=== PATIENT | male | born 1955 | race American Indian/Alaskan Native ===

== ENCOUNTER 2016-10-21 14:11 | Inpatient (IN) | payer MEDICARE ==
[2016-10-21] MEDS ORDERED: NACL 0.9% 1000 ML 1,000 ML ONE (15:19)
[2016-10-21] MEDS ORDERED: NACL 0.9% 1000 ML IV ONE ×2 (15:31→15:41)
[2016-10-21 15:59] LABS: Basophils % (Auto) 0.3 % (0.0-1.8); Eosinophils % (Auto) 0.1 % (0.0-4.3); Hematocrit 54.4 % (35.5-45.6); Hemoglobin 17.5 gm/dl (11.8-15.2); Mean Corpuscular HGB Conc 32 % (32-34); Mean Corpuscular Hemoglobin 28 pg (28-32); Mean Corpuscular Volume 88 fl (84-94); Platelet Count 207 K/mm3 (140-440); Red Blood Count 6.21 M/mm3 (3.65-5.03); Red Cell Distribution Width 13.7 % (13.2-15.2); White Blood Count 10.9 K/mm3 (4.5-11.0)
[2016-10-21 16:12] LABS: Anion Gap 26 mmol/L; B-Hydroxybutyrate 25.1 mg/dL (0.2-2.8); BUN/Creatinine Ratio 27.69; Blood Urea Nitrogen 36 mg/dL (9-20); Calcium 10.2 mg/dL (8.4-10.2); Carbon Dioxide 23 mmol/L (22-30); Chloride 117.4 mmol/L (98-107); Potassium 4.1 mmol/L (3.6-5.0)
[2016-10-21 16:25] LABS: Glucose 542 mg/dL (75-100)
[2016-10-21 16:26] LABS: Sodium 162 mmol/L (137-145)
[2016-10-21] MEDS: NACL 0.45% 1000 ML 1,000 ML IV SCH ×2 (16:58→23:48)
--- NOTE | 2016-10-21 17:02 | Emergency Department Report ---
HPI - General Chief Complaint: Hyperglycemia Time Seen by Provider: 10/21/16 15:40 - HPI HPI: Chief complaint: Altered mental status HPI: Patient is a 61-year-old male with history of CVA with right hemiparesis and aphasia, G-tube, hypertension and type 2 diabetes who presents today with altered mental status. Patient's daughter states she went to see him and he is just not acting as he normally does. Patient is a phasic but can interact quite well usual. Patient himself is unable to contribute to the history. Patient is in a detention ever since he had his stroke as he is unable to walk. Patient does eat pured foods sometimes has a feeding tube for times when he is unable to eat enough. Mode of arrival: EMS Source: family member and nursing notes Began: Family members noticed it today Duration: Able to assess Context: See above Quality: Unable to assess Severity: Unable to assess Improved with: Nothing Worsened with: Nothing Associated signs and symptoms: Unable to assess ED Past Medical Hx - Past Medical History Previous Medical History?: Yes Hx Hypertension: Yes Hx CVA: Yes Hx Diabetes: Yes (patient is not currently on any medication for diabetes) Additional medical history: Stroke. Left side hemiplegia. .Has Peg tube for feeding. Aphasic. after stroke. - Social History Smoking Status: Former Smoker ED Review of Systems ROS: Stated complaint: HYPERGLYCEMIA Other details as noted in HPI Comment: Unobtainable due to pts medical conditions (patient altered with aphasia) Physical Exam - Physical Exam Vital Signs: Vital Signs 10/21/16 10/21/16 10/21/16 14:44 14:54 15:00 Temperature 98.5 F Pulse Rate 134 H 137 H Respiratory 35 H 37 H Rate Blood Pressure 125/93 129/93 Blood Pressure [Left] O2 Sat by Pulse 95 94 93 Oximetry 10/21/16 10/21/16 10/21/16 15:08 15:09 15:29 Temperature 98.8 F Pulse Rate 137 H 129 H Respiratory 38 H 35 H 35 H Rate Blood Pressure 129/93 Blood Pressure 129/93 [Left] O2 Sat by Pulse 93 98 94 Oximetry Physical Exam: GENERAL: The patient is well-developed well-nourished. HEENT: Normocephalic. Atraumatic. Extraocular motions are intact. Patient has moist mucous membranes. NECK: Supple. No meningitic signs are noted. There is no adenopathy noted. CHEST/LUNGS: Clear to auscultation. There is no respiratory distress noted. HEART/CARDIOVASCULAR: Regular. There is no tachycardia. There is no gallop rub or murmur. ABDOMEN: Abdomen is soft, nontender. Patient has normal bowel sounds. There is no abdominal distention. SKIN: There is no rash. There is no edema. There is no diaphoresis. NEURO: The patient is awake, alert, and aphasic. Patient able to move all extremities. Patient unable to answer even yes/no questions. MUSCULOSKELETAL: There is no tenderness or deformity. There is no evidence of acute injury. ED Course Vital Signs 10/21/16 10/21/16 10/21/16 14:44 14:54 15:00 Temperature 98.5 F Pulse Rate 134 H 137 H Respiratory 35 H 37 H Rate Blood Pressure 125/93 129/93 Blood Pressure [Left] O2 Sat by Pulse 95 94 93 Oximetry 10/21/16 10/21/16 10/21/16 15:08 15:09 15:29 Temperature 98.8 F Pulse Rate 137 H 129 H Respiratory 38 H 35 H 35 H Rate Blood Pressure 129/93 Blood Pressure 129/93 [Left] O2 Sat by Pulse 93 98 94 Oximetry - Reevaluation(s) Reevaluation #1: 10/21/16 17:04 Patient's Accu-Chek was elevated and he was given 2 L of normal saline which was switched to half normal saline after his labs came back. Patient also given 5 units of regular insulin IV. ED Medical Decision Making - Lab Data Result diagrams: 10/21/16 15:33 10/21/16 15:33 Laboratory Tests 10/21/16 10/21/16 15:28 15:33 VBG pH 7.363 Ketones 25.1 H - EKG Data -: EKG Interpreted by Me EKG shows normal: sinus rhythm Rate: tachycardia (135) - EKG Data When compared to previous EKG there are: previous EKG unavailable Interpretation: other (sinus tachycardia, left axis deviation) Critical care attestation.: If time is entered above; I have spent that time in minutes in the direct care of this critically ill patient, excluding procedure time. ED Disposition Clinical Impression: Dehydration with hypernatremia, Hyperglycemia Disposition: OP ADMITTED IP TO THIS HOSP Is pt being admited?: Yes Does the pt Need Aspirin: Yes Condition: Serious Time of Disposition: 16:42 (admit to the hospitalist)
[2016-10-21] MEDS ORDERED: ASPIRIN FEEDTUBE ONE (17:15)
--- NOTE | 2016-10-21 17:45 | History and Physical Report ---
History of Present Illness Date of examination: 10/21/16 Date of admission: 10/21/16 Chief complaint: referred from [place] for hyperglycemia History of present illness: History is taken from patient's children at the bedside as he is aphasic after having a stroke 3 years ago Mr. Currie is a 61 yo M who sent to the ER from the nursing for elevated glucose and increased lethargy; as per his son he was told that he had borderline DM but was never started on anything. He was was seen in the ER and was found to have glucose of over 500; he was given NS bolus and started on 1/2 NS and given IV insulin; no cough or fever Past History Past Medical History: diabetes, hypertension, other (CVA with left hemiplegia and a phase) Past Surgical History: Other (peg placement) Social history: full code. denies: smoking (stopped 3 years ago), alcohol abuse , prescription drug abuse, IV drug use Family history: denies: hypertension Medications and Allergies Allergies Allergy/AdvReac Type Severity Reaction Status Date / Time No Known Allergies Allergy Unverified 10/21/16 15:02 Active Meds: Active Medications Sodium Chloride (Nacl 0.45% 1000 Ml) 1,000 mls @ 150 mls/hr IV DIRECT RHONDA Last Admin: 10/21/16 16:58 Dose: 150 mls/hr Review of Systems ROS unobtainable: due to mental status Exam - Constitutional Vitals: Temp Pulse Resp BP Pulse Ox 98.8 F 129 H 35 H 129/93 94 10/21/16 15:29 10/21/16 15:29 10/21/16 15:29 10/21/16 15:29 10/21/16 15:29 General appearance: Present: no acute distress, well-nourished - EENT Eyes: Present: PERRL, EOM intact. Absent: scleral icterus, conjunctival injection ENT: hearing intact, clear oral mucosa, no oropharyngeal erythema, no poor dentition - Neck Neck: Present: supple, normal ROM. Absent: enlarged thyroid, masses or JVD - Respiratory Respiratory effort: normal Respiratory: bilateral: diminished, negative: rales, rhonchi, wheezing - Cardiovascular Rhythm: regular Heart Sounds: Present: S1 & S2. Absent: gallop - Extremities Extremities: no ischemia, pulses intact, pulses symmetrical, No edema Peripheral Pulses: within normal limits - Abdominal General gastrointestinal: Present: soft, non-tender, non-distended, normal bowel sounds, other (peg tube in place) Male genitourinary: Present: deferred - Rectal Rectal Exam: deferred - Integumentary Integumentary: Present: clear - Psychiatric Psychiatric: other (unable to assess as he is a phasic) - Neurologic Neurologic: focal deficits (left hemiplegia- grade to pollen the left lower extremity and grade 3 at the elbow; grade 4 in the right upper extremity and grade 3 and the right lower extremity), other (aphasic) Results - Labs CBC & Chem 7: 10/21/16 15:33 10/21/16 15:33 Labs: Abnormal lab results 10/21/16 10/21/16 10/21/16 Range/Units 14:51 15:33 15:33 RBC 6.21 H (3.65-5.03) M/mm3 Hgb 17.5 H (11.8-15.2) gm/dl Hct 54.4 H (35.5-45.6) % [place] % (Auto) 10.3 H (0.0-7.3) % [place] # 1.1 H (0.0-0.8) K/mm3 Seg Neutrophils % 70.5 H (40.0-70.0) % Sodium 162 H* (137-145) mmol/L Chloride 117.4 H (98-107) mmol/L BUN 36 H (9-20) mg/dL Glucose 542 H* (75-100) mg/dL POC Glucose 491 H (70-105) Ketones 25.1 H (0.2-2.8) mg/dL - Imaging and Cardiology Chest x-ray: pending Assessment and Plan 1. Diabetes type 2 uncontrolled with hyperglycemia-we'll admit as an inpatient as more than 2 midnights are required for treatment. Start patient on IV fluids for hydration with half-normal saline. We'll also initiate insulin therapy with Lantus and sliding scale. With this will be adjusted as needed. Check hemoglobin A1c. Consult dietitian for tube feeding; add free water via PEG 2. Benign hypertension- now normal blood pressure, we'll continue to monitor blood pressure 3. Severe hypernatremia /hyperchloremia- secondary to dehydration-continue hydration with half-normal saline. Monitor sodium level. If sodium continues to increase then will change to a less hypotonic solution. Free water via PEG 4. Old CVA-aspirin, supportive care 5. DVT prophylaxis-Lovenox
[2016-10-21 20:14] LABS: Blood Urea Nitrogen 33 mg/dL (9-20); Calcium 9.7 mg/dL (8.4-10.2); Carbon Dioxide 21 mmol/L (22-30); Chloride 121.1 mmol/L (98-107); Glucose 395 mg/dL (75-100); Potassium 4.5 mmol/L (3.6-5.0)
[2016-10-21 20:20] LABS: Anion Gap 25 mmol/L; Sodium 163 mmol/L (137-145)
[2016-10-21] MEDS ORDERED: ZOFRAN IV PRN (20:25)
[2016-10-21] MEDS ORDERED: REGLAN IV PRN (20:25)
[2016-10-21] MEDS ORDERED: D50W (25GM) IV PRN (20:25)
[2016-10-21] MEDS ORDERED: SIMPLE SYRUP FEEDTUBE PRN ×2 (20:25)
[2016-10-21] MEDS ORDERED: PANCREAZE DR 10,500 UNIT FEEDTUBE PRN (20:25)
[2016-10-21] MEDS ORDERED: SODIUM BICARBONATE FEEDTUBE PRN (20:25)
[2016-10-21] MEDS ORDERED: LEVEMIR SUB-Q SCH (22:00)
[2016-10-21] MEDS: LEVEMIR SUB-Q SCH (22:47)
[2016-10-21] MEDS: NOVOLOG SUB-Q SCH (22:53)
--- NOTE | 2016-10-21 23:01 | Admit Criteria Form ---
Admission Criteria Documentation: HYPONATREMIA; HYPERNATREMIA; HYPOKALEMIA; HYPERKALEMIA; HYPOCALCEMIA; HYPERCALCEMIA Clinical Indications for Inpatient Care (Place 'X' for any and all applicable criteria): Ongoing inpatient care may be indicated for ANY ONE of the following [G](1)(2)(3 )(5): [ ]I. Hyponatremia with ANY ONE of the following: [ ]a) Sodium less than 130 mEq/L (mmol/L) (new) (6)(22) [ ]b) Sodium less than 135 mEq/L (mmol/L) with ANY ONE of the following: [ ]i) Severe medical etiology requiring inpatient management (eg, heart failure, hypovolemia) [ ]ii) Altered mental status [ ]iii) Seizures [ X]II. Hypernatremia with ANY ONE of the following: [ X]a) Sodium greater than 155 mEq/L (mmol/L) [ ]b) Sodium greater than 150 mEq/L (mmol/L) with ANY ONE of the following: [ ] i) Altered mental status [ ]ii) Seizures [ ]iii) Severe medical etiology (eg, hypovolemia, diabetes insipidus) [ ]iv) Severe weakness [ ]v) Severe medical etiology (eg, hemolysis, infection, drug overdose) [ ]III. Hypokalemia with ANY ONE of the following: [ ]a) Potassium less than 2.5 mEq/L (mmol/L) despite outpatient and emergency treatment [ ]b) Potassium less than 3.0 mEq/L (mmol/L) with ANY ONE of the following: [ ]i) Weakness [ ]ii) Cardiac abnormality (eg, arrhythmia, conduction disturbance) [ ]iii) Cardiac ischemia [ ]iv) Ileus [ ]v) Ongoing medical cause requiring inpatient management. ( e.g., acute renal wasting, SIADH) [ ]vi) Other severe symptoms [ ] IV. Hyperkalemia with ANY ONE of the following: [ ]a) Potassium greater than 6.5 mEq/L (mmol/L) [ ]b) Potassium greater than 5 mEq/L (mmol/L) with ANY ONE of the following: [ ]i) Severe ECG findings [H] [ ]ii) Acute worsening of renal failure (creatinine greater than 2.5 mg/dL (221 micromoles/L) or significant elevation for age and size) [ ] V. Hypocalcemia with ANY ONE of the following: [ ]a) Calcium less than 7 mg/dL (1.75 mmol/L) despite outpatient and emergency treatment(19) [ ]b) Calcium less than 8 mg/dL (2 mmol/L) with significant symptoms or findings; examples include: [ ]i) Cardiac abnormality (eg, arrhythmia or conduction disturbance) [ ]ii) Altered mental status [ ]iii) Seizures [ ]iv) Breathing difficulty [ ]v) Muscle spasms [ ]. Hypercalcemia with ANY ONE of the following: [ ]a) Calcium greater than 14 mg/dL (3.5 mmol/L) [ ]b) Calcium greater than 12 mg/dL (3 mmol/L) with ANY ONE of the following: [ ]i) Significant dehydration or hypovolemia as indicated by ANY ONE of the following(2): [ ]1. Clinically significant dehydration as indicated by ANY ONE of the following: [ ]A. Acute loss of weight from baseline (5% of body weight in adults, 9% in pediatric patients) [ ]B. Hemodynamic instability [ ]C. Acute renal failure [ ]D. Serum sodium greater than 150 mEq/L (mmol/L) [ ]2) Dehydration that is persistent indicated by ALL of the following: [ ]A. Oral rehydration therapy not tolerated or insufficient to adequately correct dehydration [ ]B. Appropriate intravenous treatment (eg, fluids ) does not readily correct dehydration ie, after 12 to 24 hours of treatment) [ ]ii) Significant symptoms or findings; examples include: [ ]1) Altered mental status [ ]2) Cardiac abnormality (eg, arrhythmia, conduction disturbance) [ ]3) Cardiac abnormality (eg, arrhythmia, conduction disturbance) The original [facility] [employer] content created by [employer] has been revised. The portions of the content which have been revised are identified through the use of italic text or in bold, and [facility] has neither reviewed nor approved the modified material. All other unmodified content is copyright [facility] [employer] [facility] [employer] Please see references footnoted in the original [facility] [employer] edition 2016 Admission Criteria Met: Yes
[2016-10-21] MEDS: TYLENOL PO PRN (23:47)
[2016-10-22] MEDS: NACL 0.45% 1000 ML 1,000 ML IV SCH (08:00)
[2016-10-22] MEDS: NOVOLOG SUB-Q SCH ×3 (08:01→17:49)
[2016-10-22 09:11] LABS: Anion Gap 18 mmol/L; BUN/Creatinine Ratio 28.88; Blood Urea Nitrogen 26 mg/dL (9-20); Calcium 9.2 mg/dL (8.4-10.2); Carbon Dioxide 26 mmol/L (22-30); Glucose 236 mg/dL (75-100); Potassium 3.5 mmol/L (3.6-5.0)
[2016-10-22 09:14] LABS: Sodium 161 mmol/L (137-145)
--- NOTE | 2016-10-22 09:39 | XRay Report ---
Single view chest: History: Shortness of breath. Findings: Normal cardiomediastinal silhouette. Trachea is midline. No consolidation, pneumothorax or pleural effusion. Impression: No acute cardiopulmonary findings.
[2016-10-22] MEDS ORDERED: ASPIRIN FEEDTUBE SCH (10:00)
[2016-10-22] MEDS: LOVENOX SUB-Q SCH (10:13)
[2016-10-22] MEDS: BABY ASPIRIN FEEDTUBE SCH (10:13)
--- NOTE | 2016-10-22 12:11 | Progress Note ---
Assessment and Plan Assessment and plan: Patient is a 61-year-old man from the assisted with a history of type 2 diabetes mellitus, hypertension and CVA with left-sided hemiparesis, aphasia and PEG tube placement who presents with hyperglycemia. 1. Acute metabolic encephalopathy 2. Severe hypernatremia: Consult nephrology and increase free water flushes via PEG tube 3. Hyperkalemia: Replace 4. Type 2 diabetes mellitus, chronic and worsening: Adjust tube feeding History Interval history: Patient seen and examined. Follow up on hyperglycemia. Patient is anxious and pulling at his PEG tube and not following commands. We'll need consider restraints. Overnight uneventful. No cp, sob, n/v or severe headaches. Imaging , old records, testing, labs, nursing notes reviewed. Hospitalist Physical - Physical exam Narrative exam: GEN: Chronic debilitated thin frail man NAD, AWAKE, ALERT, nonverbal CVS: Regular tachycardic, NORMAL S1S2 LUNGS/CHEST: CTA B, NORMAL CHEST EXPANSION B, GOOD AIR ENTRY B ABD: SOFT, PEG TUBE PRESENT but displaced, GBS, NO REBOUND OR GUARDING EXT/SKIN: NO SIGNIFICANT EDEMA OR RASH NEURO: CN 2-12 GROSSLY INTACT, NO NEW FOCAL DEFICITS, with left-sided hemiparesis and aphasia PSY: CALM - Constitutional Vitals: Temp Pulse Resp BP Pulse Ox 99 F 112 H 20 148/99 95 10/22/16 08:00 10/22/16 08:00 10/22/16 08:00 10/22/16 08:00 10/22/16 08:00 General appearance: Present: no acute distress Results - Labs CBC & Chem 7: 10/21/16 15:33 10/22/16 08:10 Labs: Laboratory Last Values WBC 10.9 K/mm3 (4.5-11.0) 10/21/16 15:33 RBC 6.21 M/mm3 (3.65-5.03) H 10/21/16 15:33 Hgb 17.5 gm/dl (11.8-15.2) H 10/21/16 15:33 Hct 54.4 % (35.5-45.6) H 10/21/16 15:33 MCV 88 fl (84-94) 10/21/16 15:33 MCH 28 pg (28-32) 10/21/16 15:33 MCHC 32 % (32-34) 10/21/16 15:33 RDW 13.7 % (13.2-15.2) 10/21/16 15:33 Plt Count 207 K/mm3 (140-440) 10/21/16 15:33 Lymph % (Auto) 18.8 % (13.4-35.0) 10/21/16 15:33 [place] % (Auto) 10.3 % (0.0-7.3) H 10/21/16 15:33 Eos % (Auto) 0.1 % (0.0-4.3) 10/21/16 15:33 Baso % (Auto) 0.3 % (0.0-1.8) 10/21/16 15:33 Lymph # 2.0 K/mm3 (1.2-5.4) 10/21/16 15:33 [place] # 1.1 K/mm3 (0.0-0.8) H 10/21/16 15: Eos # 0.0 K/mm3 (0.0-0.4) 10/21/16 15:33 Baso # 0.0 K/mm3 (0.0-0.1) 10/21/16 15:33 Seg Neutrophils % 70.5 % (40.0-70.0) H 10/21/16 15:33 Seg Neutrophils # 7.7 K/mm3 (1.8-7.7) 10/21/16 15:33 VBG pH 7.363 (7.320-7.420) 10/21/16 15:28 Sodium 161 mmol/L (137-145) H* 10/22/16 08:10 Potassium 3.5 mmol/L (3.6-5.0) L D 10/22/16 08:10 Chloride 121.0 mmol/L (98-107) H 10/22/16 08:10 Carbon Dioxide 26 mmol/L (22-30) 10/22/16 08:10 Anion Gap 18 mmol/L 10/22/16 08:10 BUN 26 mg/dL (9-20) H 10/22/16 08:10 Creatinine 0.9 mg/dL (0.8-1.5) 10/22/16 08:10 Estimated GFR > 60 ml/min 10/22/16 08:10 BUN/Creatinine Ratio 28.88 % 10/22/16 08:10 Glucose 236 mg/dL (75-100) H 10/22/16 08:10 POC Glucose 207 (70-105) H 10/22/16 06:34 Hemoglobin A1c 10.6 % (4-6) H 10/21/16 15:33 Osmolality 375 Mosm/kg 10/21/16 21:50 Calcium 9.2 mg/dL (8.4-10.2) 10/22/16 08:10 Ketones 25.1 mg/dL (0.2-2.8) H 10/21/16 15:33
--- NOTE | 2016-10-22 17:11 | Consultation ---
History of Present Illness - Reason for Consult Consult date: 10/22/16 - History of Present Illness Patient is a 61-y/o residential resident with a history of type 2 diabetes mellitus, hypertension, CVA with left-sided hemiparesis, aphasia and PEG tube in place who presented with uncontrolled blood sugar and AMS. Poor historian. Past History Past Medical History: diabetes, hypertension, other (CVA with left hemiplegia and a phase) Past Surgical History: Other (peg placement) Social history: full code. denies: smoking (stopped 3 years ago), alcohol abuse , prescription drug abuse, IV drug use Family history: denies: hypertension Medications and Allergies Allergies Allergy/AdvReac Type Severity Reaction Status Date / Time No Known Allergies Allergy Unverified 10/21/16 15:02 Home Medications Medication Instructions Recorded Confirmed Last Taken Type Effexor 37.5 mg FEEDTUBE BID 10/21/16 10/21/16 Unknown History Ferrous Sulfate 300 mg FEEDTUBE DAILY 10/21/16 10/21/16 Unknown History Lipitor 20 mg PO HS 10/21/16 10/21/16 Unknown History Plavix 75 mg FEEDTUBE DAILY 10/21/16 10/21/16 Unknown History RisperDAL 1 mg FEEDTUBE HS 10/21/16 10/21/16 Unknown History Valproic Acid 250 mg FEEDTUBE HS 10/21/16 10/21/16 Unknown History Active Meds: Active Medications Acetaminophen (Tylenol) 650 mg PO Q4H PRN PRN Reason: Pain MILD(1-3)/Fever >100.5/PUGA Last Admin: 10/21/16 23:47 Dose: 650 mg Lipase/Protease/Amylase (Pancreaze Dr 10,500 Unit) 1 each FEEDTUBE PRN PRN PRN Reason: For Clogged Feeding Tube Aspirin (Baby Aspirin) 81 mg FEEDTUBE QDAY [facility] Last Admin: 10/22/16 10:13 Dose: Not Given Dextrose (D50w (25gm)) 50 ml IV PRN PRN PRN Reason: Hypoglycemia Enoxaparin Sodium (Lovenox) 40 mg SUB-Q QDAY [facility] Last Admin: 10/22/16 10:13 Dose: 40 mg Insulin Aspart (Novolog) 0 units SUB-Q ACHS RHONDA PRN Reason: Protocol Last Admin: 10/22/16 13:11 Dose: Not Given Insulin Detemir (Levemir) 15 units SUB-Q QHS [facility] Last Admin: 10/21/16 22:47 Dose: 15 units Metoclopramide HCl (Reglan) 10 mg IV Q6H PRN PRN Reason: Nausea And Vomiting Ondansetron HCl (Zofran) 4 mg IV Q8H PRN PRN Reason: N/V unrelieved by Reglan Last Admin: 10/21/16 23:47 Dose: 4 mg Simple Syrup (Simple Syrup) 15 ml FEEDTUBE PRN PRN PRN Reason: Hypoglycemia Simple Syrup (Simple Syrup) 30 ml FEEDTUBE PRN PRN PRN Reason: Hypoglycemia Sodium Bicarbonate (Sodium Bicarbonate) 325 mg FEEDTUBE PRN PRN PRN Reason: For Clogged Feeding Tube Review of Systems ROS unobtainable: due to mental status Exam - Vital Signs Vital signs: Vital Signs Pulse Ox 95 10/21/16 14:44 Temp Pulse Resp BP Pulse Ox 99 F 112 H 20 148/99 95 10/22/16 08:00 10/22/16 08:00 10/22/16 08:00 10/22/16 08:00 10/22/16 08:00 - General Appearance General appearance: cachectic, frail EENT: mucous membranes dry Respiratory: Decreased Breath Sounds Heart: regular, S1S2 Gastrointestinal: Present: normoactive bowel sounds, other (peg tube) Neurologic: aphasia (alert and oriented to self), other Musculoskeletal: Present: other (with left-sided hemiparesis ) Psychiatric: other Results - Lab Results 10/21/16 15:33 10/22/16 08:10 Most recent lab results Calcium 9.2 mg/dL (8.4-10.2) 10/22/16 08:10 Assessment and Plan Impression: UMANG sec to dehydration Hypernatremia Erythrocytosis. Chronic Debilitation Uncontrolled Hyperglycemia Mild hypokalemia. Reccommendation: Will continue IV hydration wih hypotonic solution - D5W Obtain Urine studies. Support BP if reccurrent hypotension Avoid nephrotoxins agents. PEG tube use chi. Enterally feed Thanks for the consult.
[2016-10-22] MEDS: TYLENOL PO PRN (22:39)
[2016-10-22] MEDS: LEVEMIR SUB-Q SCH (22:41)
[2016-10-23] MEDS: NOVOLOG SUB-Q SCH ×6 (01:41→23:34)
[2016-10-23 08:23] LABS: BUN/Creatinine Ratio 28.75; Blood Urea Nitrogen 23 mg/dL (9-20); Calcium 9.6 mg/dL (8.4-10.2); Carbon Dioxide 27 mmol/L (22-30); Glucose 188 mg/dL (75-100)
[2016-10-23 08:24] LABS: Anion Gap 19 mmol/L; Chloride 121.5 mmol/L (98-107); Potassium 3.4 mmol/L (3.6-5.0)
[2016-10-23 08:25] LABS: Sodium 164 mmol/L (137-145)
--- NOTE | 2016-10-23 09:51 | Progress Note ---
Assessment and Plan Impression: UMANG sec to dehydration Hypernatremia - persistent. Erythrocytosis. Chronic Debilitation Uncontrolled Hyperglycemia Mild hypokalemia. Reccommendation: Will resume IV D5W BP is stable Avoid nephrotoxins agents. Subjective Date of service: 10/23/16 Interval history: Follow up for hypernatremia and UMANG. Objective - Vital Signs Vital signs: Vital Signs - 12hr 10/23/16 10/23/16 10/23/16 00:00 04:00 08:00 Temperature 97.4 F L 97.9 F 98.3 F Pulse Rate [ 120 H 110 H 119 H Left Radial] Respiratory 22 20 22 Rate Blood Pressure 127/78 119/70 133/91 [Left Radial Artery] O2 Sat by Pulse 94 95 98 Oximetry Intake & Output 10/21/16 10/22/16 10/23/16 10/24/16 06:59 06:59 06:59 06:59 Intake Total 10 0 Balance 10 0 Weight 76 kg - Lab 10/21/16 15:33 10/23/16 07:18 Most recent lab results Calcium 9.6 mg/dL (8.4-10.2) 10/23/16 07:18 Current Medications Acetaminophen (Tylenol) 650 mg PO Q4H PRN PRN Reason: Pain MILD(1-3)/Fever >100.5/PUGA Last Admin: 10/22/16 22:39 Dose: 650 mg Lipase/Protease/Amylase (Pancreaze Dr 10,500 Unit) 1 each FEEDTUBE PRN PRN PRN Reason: For Clogged Feeding Tube Aspirin (Baby Aspirin) 81 mg FEEDTUBE QDAY [facility] Last Admin: 10/22/16 10:13 Dose: Not Given Dextrose (D50w (25gm)) 50 ml IV PRN PRN PRN Reason: Hypoglycemia Enoxaparin Sodium (Lovenox) 40 mg SUB-Q QDAY [facility] Last Admin: 10/22/16 10:13 Dose: 40 mg Insulin Aspart (Novolog) 0 units SUB-Q ACHS [facility] PRN Reason: Protocol Last Admin: 10/23/16 01:41 Dose: 2 units Insulin Detemir (Levemir) 15 units SUB-Q QHS [facility] Last Admin: 10/22/16 22:41 Dose: 15 units Metoclopramide HCl (Reglan) 10 mg IV Q6H PRN PRN Reason: Nausea And Vomiting Ondansetron HCl (Zofran) 4 mg IV Q8H PRN PRN Reason: N/V unrelieved by Angelika Soler Admin: 10/21/16 23:47 Dose: 4 mg Simple Syrup (Simple Syrup) 15 ml FEEDTUBE PRN PRN PRN Reason: Hypoglycemia Simple Syrup (Simple Syrup) 30 ml FEEDTUBE PRN PRN PRN Reason: Hypoglycemia Sodium Bicarbonate (Sodium Bicarbonate) 325 mg FEEDTUBE PRN PRN PRN Reason: For Clogged Feeding Tube
[2016-10-23] MEDS: LOVENOX SUB-Q SCH (09:57)
[2016-10-23] MEDS ORDERED: D5W 1,000 ML IV SCH ×2 (10:00→12:00)
[2016-10-23] MEDS: BABY ASPIRIN FEEDTUBE SCH (10:02)
--- NOTE | 2016-10-23 12:24 | Progress Note ---
Assessment and Plan Assessment and plan: Patient is a 61-year-old man from the group home with a history of type 2 diabetes mellitus, hypertension and CVA with left-sided hemiparesis, aphasia and PEG tube placement who presents with hyperglycemia. 1. Acute metabolic encephalopathy 2. Severe hypernatremia: Consulted nephrology and increased free water flushes via PEG tube 3. Hypo replace and recheck in a.m. kalemia: 4. Type 2 diabetes mellitus, chronic and worsening: Adjust insulin Hypernatremia is worsening because he did not get his free water flushes because he pulled out his PEG tube, consult GI to reestablish PEG tube and start IV dextrose, anticipate worsening of his diabetes mellitus; therefore, increased his Levemir at night We will re-order restraints History Interval history: Patient seen and examined. Follow up on hyperglycemia. Patient is anxious and pulling at his PEG tube and not following commands. We'll need consider restraints. Overnight uneventful. No cp, sob, n/v or severe headaches. Imaging , old records, testing, labs, nursing notes reviewed. Hospitalist Physical - Physical exam Narrative exam: GEN: Chronic debilitated thin frail man NAD, AWAKE, ALERT, nonverbal CVS: Regular tachycardic, NORMAL S1S2 LUNGS/CHEST: CTA B, NORMAL CHEST EXPANSION B, GOOD AIR ENTRY B ABD: SOFT, PEG TUBE PRESENT but displaced, GBS, NO REBOUND OR GUARDING EXT/SKIN: NO SIGNIFICANT EDEMA OR RASH NEURO: CN 2-12 GROSSLY INTACT, NO NEW FOCAL DEFICITS, with left-sided hemiparesis and aphasia PSY: CALM - Constitutional Vitals: Temp Pulse Resp BP Pulse Ox 98.3 F 119 H 22 133/91 98 10/23/16 08:00 10/23/16 08:00 10/23/16 08:00 10/23/16 08:00 10/23/16 08:00 General appearance: Present: no acute distress Results - Labs CBC & Chem 7: 10/21/16 15:33 10/23/16 07:18 Labs: Laboratory Last Values WBC 10.9 K/mm3 (4.5-11.0) 10/21/16 15:33 RBC 6.21 M/mm3 (3.65-5.03) H 10/21/16 15:33 Hgb 17.5 gm/dl (11.8-15.2) H 10/21/16 15:33 Hct 54.4 % (35.5-45.6) H 10/21/16 15:33 MCV 88 fl (84-94) 10/21/16 15:33 MCH 28 pg (28-32) 10/21/16 15:33 MCHC 32 % (32-34) 10/21/16 15:33 RDW 13.7 % (13.2-15.2) 10/21/16 15:33 Plt Count 207 K/mm3 (140-440) 10/21/16 15:33 Lymph % (Auto) 18.8 % (13.4-35.0) 10/21/16 15:33 [place] % (Auto) 10.3 % (0.0-7.3) H 10/21/16 15: Eos % (Auto) 0.1 % (0.0-4.3) 10/21/16: Baso % (Auto) 0.3 % (0.0-1.8) 10/21/16 15:33 Lymph # 2.0 K/mm3 (1.2-5.4) 10/21/16 15:33 [place] # 1.1 K/mm3 (0.0-0.8) H 10/21/16 15: Eos # 0.0 K/mm3 (0.0-0.4) 10/21/16 15: Baso # 0.0 K/mm3 (0.0-0.1) 10/21/16 15:33 Seg Neutrophils % 70.5 % (40.0-70.0) H 10/21/16 15:33 Seg Neutrophils # 7.7 K/mm3 (1.8-7.7) 10/21/16 15:33 VBG pH 7.363 (7.320-7.420) 10/21/16 15:28 Sodium 164 mmol/L (137-145) H* 10/23/16 07:18 Potassium 3.5 mmol/L (3.6-5.0) L D 10/22/16 08:10 Chloride 121.0 mmol/L (98-107) H 10/22/16 08:10 Carbon Dioxide 27 mmol/L (22-30) 10/23/16 07:18 Anion Gap 18 mmol/L 10/22/16 08:10 BUN 23 mg/dL (9-20) H 10/23/16 07:18 Creatinine 0.8 mg/dL (0.8-1.5) 10/23/16 07:18 Estimated GFR > 60 ml/min 10/23/16 07:18 BUN/Creatinine Ratio 28.75 % 10/23/16 07:18 Glucose 188 mg/dL (75-100) H 10/23/16 07:18 POC Glucose 197 (70-105) H 10/23/16 05:55 Hemoglobin A1c 10.6 % (4-6) H 10/21/16 15:33 Osmolality 375 Mosm/kg 10/21/16 21:50 Calcium 9.6 mg/dL (8.4-10.2) 10/23/16 07:18 Urine Creatinine 215.4 mg/dL (0.1-20.0) H 10/23/16 11:00 Urine Sodium 83 mEq/L 10/23/16 11:00 Ketones 25.1 mg/dL (0.2-2.8) H 10/21/16 15:33
[2016-10-23] MEDS ORDERED: SODIUM BICARBONATE FEEDTUBE PRN (14:58)
[2016-10-23] MEDS ORDERED: PANCREAZE DR 10,500 UNIT FEEDTUBE PRN (14:58)
[2016-10-23] MEDS ORDERED: SIMPLE SYRUP FEEDTUBE PRN ×2 (14:58)
--- NOTE | 2016-10-23 16:22 | Gastroenterology Consultation ---
History of Present Illness - Reason for Consult Consult date: 10/23/16 assess PEG tube Requesting physician: DENY CONKLIN - History of Present Illness Mr Currie is a 61 yo male with h/o DM, CVA, aphasia with chronic peg tube who presents from SNF with hyperglycemia and worsening mental status. History primarily gathered from chart review since pt unable to provide history. Pt reportedly was pulling on his peg tube and GI consulted to evaluate for proper location. He currently is in restraints. No reported n/v or GI bleeding. Past History Past Medical History: diabetes, hypertension, other (CVA with left hemiplegia and a phase) Past Surgical History: Other (peg placement) Social history: full code. denies: smoking (stopped 3 years ago), alcohol abuse , prescription drug abuse, IV drug use Family history: denies: hypertension Medications and Allergies Allergies Allergy/AdvReac Type Severity Reaction Status Date / Time No Known Allergies Allergy Unverified 10/21/16 15:02 Home Medications Medication Instructions Recorded Confirmed Last Taken Type Effexor 37.5 mg FEEDTUBE BID 10/21/16 10/21/16 Unknown History Ferrous Sulfate 300 mg FEEDTUBE DAILY 10/21/16 10/21/16 Unknown History Lipitor 20 mg PO HS 10/21/16 10/21/16 Unknown History Plavix 75 mg FEEDTUBE DAILY 10/21/16 10/21/16 Unknown History RisperDAL 1 mg FEEDTUBE HS 10/21/16 10/21/16 Unknown History Valproic Acid 250 mg FEEDTUBE HS 10/21/16 10/21/16 Unknown History Active Meds: Active Medications Acetaminophen (Tylenol) 650 mg PO Q4H PRN PRN Reason: Pain MILD(1-3)/Fever >100.5/UPGA Last Admin: 10/22/16 22:39 Dose: 650 mg Lipase/Protease/Amylase (Pancreaze Dr 10,500 Unit) 1 each FEEDTUBE PRN PRN PRN Reason: For Clogged Feeding Tube Aspirin (Baby Aspirin) 81 mg FEEDTUBE QDAY [facility] Last Admin: 10/23/16 10:02 Dose: 81 mg Dextrose (D50w (25gm)) 50 ml IV PRN PRN PRN Reason: Hypoglycemia Enoxaparin Sodium (Lovenox) 40 mg SUB-Q QDAY [facility] Last Admin: 10/23/16 09:57 Dose: 40 mg Dextrose (D5w) 1,000 mls @ 100 mls/hr IV DIRECT [facility] Insulin Aspart (Novolog) 0 units SUB-Q ACHS [facility] PRN Reason: Protocol Last Admin: 10/23/16 13:22 Dose: 3 units Insulin Detemir (Levemir) 20 units SUB-Q QHS [facility] Metoclopramide HCl (Reglan) 10 mg IV Q6H PRN PRN Reason: Nausea And Vomiting Ondansetron HCl (Zofran) 4 mg IV Q8H PRN PRN Reason: N/V unrelieved by Reglan Last Admin: 10/21/16 23:47 Dose: 4 mg Simple Syrup (Simple Syrup) 15 ml FEEDTUBE PRN PRN PRN Reason: Hypoglycemia Simple Syrup (Simple Syrup) 30 ml FEEDTUBE PRN PRN PRN Reason: Hypoglycemia Sodium Bicarbonate (Sodium Bicarbonate) 325 mg FEEDTUBE PRN PRN PRN Reason: For Clogged Feeding Tube Review of Systems - Review of Systems ROS unobtainable: due to mental status Exam - Exam Narrative Exam: Gen: chronically ill appearing male, unable to communicate, in restraints Head: nc/at Mouth: dry mucous membranes Eyes: anicteric Neck: no JVD/LAD CV: RRR Lungs: CTAB, non labored Abd: soft, nd, + g tube site c/d/i Ext: no edema Neuro: oriented x 0 Skin: no obvious rashes or lesions - Constitutional Vital Signs: Temp Pulse Resp BP Pulse Ox 97.1 F L 114 H 20 140/76 98 10/23/16 13:00 10/23/16 13:00 10/23/16 13:00 10/23/16 13:00 10/23/16 08:00 - Labs CBC & Chem 7: 10/21/16 15:33 10/23/16 07:18 Lab Results: Laboratory Results - last 24 hr 10/22/16 10/22/16 10/23/16 16:30 21:20 05:55 Sodium Carbon Dioxide BUN Creatinine Estimated GFR BUN/Creatinine Ratio Glucose POC Glucose 203 H 169 H 197 H Calcium Urine Creatinine Urine Sodium 10/23/16 10/23/16 07:18 11:00 Sodium 164 H* Carbon Dioxide 27 BUN 23 H Creatinine 0.8 Estimated GFR > 60 BUN/Creatinine Ratio 28.75 Glucose 188 H POC Glucose Calcium 9.6 Urine Creatinine 215.4 H Urine Sodium 83 Assessment and Plan 61 yo male with h/o DM, CVA/aphasia, dementia with PEG tube presents with hyperglycemia and hypernatremia. Pt was pulling on PEG tube and unclear if it remains in proper location. External appearance is normal without leakage at insertion site, swelling, or erythema. Obtain gastrograffin study via PEG tube to assess location.
--- NOTE | 2016-10-23 19:42 | Fluoroscopy Report ---
FINAL REPORT PROCEDURE: Abdomen. TECHNIQUE: AP views before and after contrast injection. HISTORY: Evaluate gastrostomy tube location. COMPARISON: No prior studies are available for comparison. FINDINGS: There is a gastrostomy tube projected over the gastric air bubble. The bowel gas pattern appears normal. There is calcification in the common iliac arteries. Following contrast injection the stomach and duodenum are outlined. The retention balloon of the gastrostomy tube is located within the lumen of the stomach. The regional skeleton appears intact. IMPRESSION: Gastrostomy tube in satisfactory position.
[2016-10-23] MEDS: D5W 1,000 ML IV SCH (21:34)
[2016-10-23] MEDS ORDERED: LEVEMIR SUB-Q SCH (22:00)
[2016-10-24] MEDS: D5W 1,000 ML IV SCH (05:11)
[2016-10-24] MEDS: NOVOLOG SUB-Q SCH ×4 (07:30→23:27)
[2016-10-24] MEDS: BABY ASPIRIN FEEDTUBE SCH (09:22)
[2016-10-24] MEDS: LOVENOX SUB-Q SCH (09:22)
--- NOTE | 2016-10-24 09:55 | Progress Note ---
Assessment and Plan Impression: UMANG sec to dehydration Hypernatremia - persistent. Erythrocytosis. Chronic Debilitation Uncontrolled Hyperglycemia Reccommendation: Pt has more output and no fluid infusing. Hypernatremia cannot correct without fluid replacement. Resume IV hydration. Optimise insulin for blood sugar control. BP is stable. BMP today Avoid nephrotoxins agents. Subjective Date of service: 10/24/16 Interval history: Follow up for hypernatremia and UMANG. Seen and examined. Objective - Vital Signs Vital signs: Vital Signs - 12hr 10/24/16 10/24/16 10/24/16 00:00 04:00 07:00 Temperature 100.8 F H 99.1 F 97.6 F Pulse Rate [ 133 H 119 H 112 H Left Radial] Respiratory 18 18 18 Rate Blood Pressure 127/86 126/88 124/76 [Left Radial Artery] O2 Sat by Pulse 100 Oximetry - General Appearance General appearance: appears stated age EENT: mucous membranes moist Neck: no thyromegaly, no carotid bruit, supple Respiratory: Present: Clear to Ascultation Cardiology: regular, normal heart rate, S1S2 Gastrointestinal: normoactive bowel sounds Integumentary: no rash, warm and dry Neurologic: no focal deficit, alert and oriented x3 Musculoskeletal: decreased ROM Psychiatric: mood/affect appropriate, cooperative - Lab 10/21/16 15:33 10/23/16 07:18 Most recent lab results Calcium 9.6 mg/dL (8.4-10.2) 10/23/16 07:18 Urine Creatinine 215.4 mg/dL (0.1-20.0) H 10/23/16 11:00 Urine Sodium 83 mEq/L 10/23/16 11:00 Current Medications Acetaminophen (Tylenol) 650 mg PO Q4H PRN PRN Reason: Pain MILD(1-3)/Fever >100.5/PUGA Last Admin: 10/22/16 22:39 Dose: 650 mg Lipase/Protease/Amylase (Pancreaze Dr 10,500 Unit) 1 each FEEDTUBE PRN PRN PRN Reason: For Clogged Feeding Tube Aspirin (Baby Aspirin) 81 mg FEEDTUBE QDAY [facility] Last Admin: 10/24/16 09:22 Dose: 81 mg Dextrose (D50w (25gm)) 50 ml IV PRN PRN PRN Reason: Hypoglycemia Enoxaparin Sodium (Lovenox) 40 mg SUB-Q QDAY [facility] Last Admin: 10/24/16 09:22 Dose: 40 mg Dextrose (D5w) 1,000 mls @ 125 mls/hr IV DIRECT [facility] Last Admin: 10/24/16 05:11 Dose: 125 mls/hr Insulin Aspart (Novolog) 0 units SUB-Q ACHS [facility] PRN Reason: Protocol Last Admin: 10/24/16 07:30 Dose: Not Given Insulin Detemir (Levemir) 20 units SUB-Q QHS [facility] Last Admin: 10/23/16 23:30 Dose: 20 units Metoclopramide HCl (Reglan) 10 mg IV Q6H PRN PRN Reason: Nausea And Vomiting Ondansetron HCl (Zofran) 4 mg IV Q8H PRN PRN Reason: N/V unrelieved by Reglan Last Admin: 10/21/16 23:47 Dose: 4 mg Simple Syrup (Simple Syrup) 15 ml FEEDTUBE PRN PRN PRN Reason: Hypoglycemia Simple Syrup (Simple Syrup) 30 ml FEEDTUBE PRN PRN PRN Reason: Hypoglycemia Sodium Bicarbonate (Sodium Bicarbonate) 325 mg FEEDTUBE PRN PRN PRN Reason: For Clogged Feeding Tube
[2016-10-24 10:19] LABS: Hematocrit 49.2 % (35.5-45.6); Hemoglobin 15.4 gm/dl (11.8-15.2); Mean Corpuscular HGB Conc 31 % (32-34); Mean Corpuscular Hemoglobin 27 pg (28-32); Mean Corpuscular Volume 87 fl (84-94); Platelet Count 125 K/mm3 (140-440); Red Blood Count 5.67 M/mm3 (3.65-5.03); Red Cell Distribution Width 13.9 % (13.2-15.2); White Blood Count 11.8 K/mm3 (4.5-11.0)
[2016-10-24 10:36] LABS: Anion Gap 20 mmol/L; BUN/Creatinine Ratio 34.44; Blood Urea Nitrogen 31 mg/dL (9-20); Calcium 9.2 mg/dL (8.4-10.2); Carbon Dioxide 27 mmol/L (22-30); Glucose 365 mg/dL (75-100); Potassium 3.8 mmol/L (3.6-5.0)
[2016-10-24 10:39] LABS: Sodium 161 mmol/L (137-145)
[2016-10-24 12:29] LABS: Anion Gap 19 mmol/L; BUN/Creatinine Ratio 33.33; Blood Urea Nitrogen 30 mg/dL (9-20); Calcium 9.1 mg/dL (8.4-10.2); Carbon Dioxide 27 mmol/L (22-30); Chloride 120.7 mmol/L (98-107); Glucose 369 mg/dL (75-100); Potassium 3.5 mmol/L (3.6-5.0)
[2016-10-24 12:34] LABS: Sodium 163 mmol/L (137-145)
[2016-10-24] MEDS: D5NS 0.2% 1,000 ML IV SCH (15:12)
--- NOTE | 2016-10-24 15:58 | Progress Note ---
Assessment and Plan Assessment and plan: Patient is a 61-year-old man from the long term with a history of type 2 diabetes mellitus, hypertension and CVA with left-sided hemiparesis, aphasia and PEG tube placement who presents with hyperglycemia. 1. Acute metabolic encephalopathy 2. Severe hypernatremia: IV fluids by Nephro, I discussed with nursing staff as patient has not been getting the approriate Free water flushes, Will continue to monitor. Peg Replaced. monitor serial sodium 3. Hypokalemia replace and recheck in a.m. 4. Type 2 diabetes mellitus, -uncontrolled- Will increase insulin to 30units qh 5. Chronic Debility History Interval history: Patient seen and examined, in no acute distress. not following commands at this time and remains on restraints records so far including images reviewed in detail no other overnight uneventful. No cp, sob, n/v or severe headaches. Hospitalist Physical - Physical exam Narrative exam: GEN: Chronic debilitated thin frail man NAD, Leathergic, nonverbal CVS: Regular tachycardic, NORMAL S1S2 LUNGS/CHEST: clear no rales ABD: SOFT, PEG TUBE PRESENT GBS, NO REBOUND OR GUARDING EXT/SKIN: NO SIGNIFICANT EDEMA OR RASH NEURO: CN 2-12 GROSSLY INTACT, NO NEW FOCAL DEFICITS, with left-sided hemiparesis and aphasia PSY: CALM - Constitutional Vitals: Temp Pulse Resp BP Pulse Ox 98.4 F 118 H 20 122/80 94 10/24/16 12:54 10/24/16 12:54 10/24/16 12:54 10/24/16 12:54 10/24/16 12:54 General appearance: Present: no acute distress Results - Labs CBC & Chem 7: 10/24/16 08:53 10/24/16 16:54 Labs: Laboratory Last Values WBC 11.8 K/mm3 (4.5-11.0) H 10/24/16 08:53 RBC 5.67 M/mm3 (3.65-5.03) H 10/24/16 08:53 Hgb 15.4 gm/dl (11.8-15.2) H 10/24/16 08:53 Hct 49.2 % (35.5-45.6) H 10/24/16 08:53 MCV 87 fl (84-94) 10/24/16 08:53 MCH 27 pg (28-32) L 10/24/16 08:53 MCHC 31 % (32-34) L 10/24/16 08:53 RDW 13.9 % (13.2-15.2) 10/24/16 08:53 Plt Count 125 K/mm3 (140-440) L 10/24/16 08:53 Lymph % (Auto) 18.8 % (13.4-35.0) 10/21/16 15:33 [place] % (Auto) 10.3 % (0.0-7.3) H 10/21/16 15:33 Eos % (Auto) 0.1 % (0.0-4.3) 10/21/16 15:33 Baso % (Auto) 0.3 % (0.0-1.8) 10/21/16 15:33 Lymph # 2.0 K/mm3 (1.2-5.4) 10/21/16 15:33 [place] # 1.1 K/mm3 (0.0-0.8) H 10/21/16 15:33 Eos # 0.0 K/mm3 (0.0-0.4) 10/21/16 15:33 Baso # 0.0 K/mm3 (0.0-0.1) 10/21/16 15:33 Seg Neutrophils % 70.5 % (40.0-70.0) H 10/21/16 15:33 Seg Neutrophils # 7.7 K/mm3 (1.8-7.7) 10/21/16 15:33 VBG pH 7.363 (7.320-7.420) 10/21/16 15:28 Sodium 163 mmol/L (137-145) H* 10/24/16 11:40 Potassium 3.5 mmol/L (3.6-5.0) L 10/24/16 11:40 Chloride 120.7 mmol/L (98-107) H 10/24/16 11:40 Carbon Dioxide 27 mmol/L (22-30) 10/24/16 11:40 Anion Gap 19 mmol/L 10/24/16 11:40 BUN 30 mg/dL (9-20) H 10/24/16 11:40 Creatinine 0.9 mg/dL (0.8-1.5) 10/24/16 11:40 Estimated GFR > 60 ml/min 10/24/16 11:40 BUN/Creatinine Ratio 33.33 % 10/24/16 11:40 Glucose 369 mg/dL (75-100) H 10/24/16 11:40 POC Glucose 316 (70-105) H 10/24/16 11:50 Hemoglobin A1c 10.6 % (4-6) H 10/21/16 15:33 Osmolality 375 Mosm/kg 10/21/16 21:50 Calcium 9.1 mg/dL (8.4-10.2) 10/24/16 11:40 Urine Creatinine 215.4 mg/dL (0.1-20.0) H 10/23/16 11:00 Urine Sodium 83 mEq/L 10/23/16 11:00 Ketones 25.1 mg/dL (0.2-2.8) H 10/21/16 15:33
--- NOTE | 2016-10-24 16:11 | Event Note ---
Date: 10/24/16 Gastrograffin G-tube study reviewed and is on proper location. please call with questions.
[2016-10-24 17:42] LABS: BUN/Creatinine Ratio 32.22; Blood Urea Nitrogen 29 mg/dL (9-20); Calcium 9.1 mg/dL (8.4-10.2); Carbon Dioxide 27 mmol/L (22-30); Chloride 119.3 mmol/L (98-107); Glucose 275 mg/dL (75-100); Potassium 3.4 mmol/L (3.6-5.0); Sodium 158 mmol/L (137-145)
[2016-10-24 17:47] LABS: Anion Gap 15 mmol/L
[2016-10-24] MEDS ORDERED: LEVEMIR SUB-Q SCH (22:00)
[2016-10-25] MEDS: KCL 10MEQ/100ML 100 ML IV SCH ×6 (00:04→04:36)
[2016-10-25] MEDS: D5NS 0.2% 1,000 ML IV SCH (03:57)
[2016-10-25 07:19] LABS: Hematocrit 44.6 % (35.5-45.6); Hemoglobin 14.2 gm/dl (11.8-15.2); Mean Corpuscular HGB Conc 32 % (32-34); Mean Corpuscular Hemoglobin 28 pg (28-32); Mean Corpuscular Volume 87 fl (84-94); Platelet Count 115 K/mm3 (140-440); Red Blood Count 5.11 M/mm3 (3.65-5.03); Red Cell Distribution Width 13.4 % (13.2-15.2); White Blood Count 9.3 K/mm3 (4.5-11.0)
[2016-10-25 07:39] LABS: Anion Gap 16 mmol/L; Blood Urea Nitrogen 26 mg/dL (9-20); Calcium 8.9 mg/dL (8.4-10.2); Carbon Dioxide 27 mmol/L (22-30); Chloride 116.1 mmol/L (98-107); Glucose 344 mg/dL (75-100); Potassium 3.8 mmol/L (3.6-5.0); Sodium 155 mmol/L (137-145)
[2016-10-25] MEDS: NOVOLOG SUB-Q SCH (08:12)
[2016-10-25 08:54] VITALS: BP 150/79
[2016-10-25] MEDS: BABY ASPIRIN FEEDTUBE SCH (10:44)
--- NOTE | 2016-10-25 10:46 | Discharge Summary ---
Providers - Providers Date of Admission: 10/21/16 16:54 Date of discharge: 10/25/16 Attending physician: ERICA MENDOZA MD 10/22/16 09:39 Consult to Physician [CONS] Routine Consulting Provider: MARLENE JORDAN I Reason For Exam: hypernatremia Place consult to:: Dr. Jordan Notified:: [employer] Phone number called:: [phone] Was contact made?: Yes If yes, spoke with:: ESTEAFNI Time called:: 09:49 Comment:: LUDY NOTIFIED 10/23/16 10:42 Consult to Physician [CONS] Routine Consulting Provider: LEELEE THOMPSON Reason For Exam: eval. Peg tube Place consult to:: Laura Sommer. Notified:: [employer] at office Phone number called:: [phone] Was contact made?: Yes If yes, spoke with:: [employer] Time called:: 09:45 Comment:: Dr. Vale will call back Primary care physician: JANAE ACOSTA Hospitalization Reason for admission: Dehydration, Hypernatremia Condition: Stable Hospital course: Patient is a 61-year-old [facility] with a history of type 2 diabetes mellitus, hypertension and CVA with left-sided hemiparesis, aphasia and PEG tube placement who presents with hyperglycemia. He was noted to have significantly elevated sodium level is low spell that the PEG tube was not functioning GI and nephrology were unable to consult with nephrology did perform a Gastrografin study which showed that the PEG tube was in good position. It was resumed use. Sodium gradually improved and is now down to 155. Nephrology input is appreciated. We'll recommend continued evaluation outpatient. With close monitoring of sodium level. Patient's mental status appears to be back to his baseline. Although he is aphasic and was able to comprehend when I talked about going home and has had a response. Since I was noted to have significantly elevated blood glucose level and this appears to be a new diagnosis of diabetes mellitus. He was started on insulin dose was increased to 30 units with high-dose sliding scale still elevated. I'll be discharging him on 35 units of insulin daily at bedtime and 5 of aspart before meals or every 6 hours as is and feeding. Discharge diagnosis 1. Acute metabolic encephalopathy-resolved 2. Severe hypernatremia-improved 3. Hypokalemia 4. Type 2 diabetes mellitus, -uncontrolled-new diagnosis 5. Chronic Debility Disposition: DC/TX SNF [facility] CERT Time spent for discharge: 35 mins Core Measure Documentation - Palliative Care Palliative Care/ Comfort Measures: Not Applicable - Core Measures Any of the following diagnoses?: none - VTE Discharge Requirements Deep Vein Thrombosis/Pulmonary Embolism Present on Admission: No Exam - Physical Exam Narrative exam: GEN: Chronic debilitated thin frail man NAD, Leathergic, nonverbal CVS: Regular tachycardic, NORMAL S1S2 LUNGS/CHEST: clear no rales ABD: SOFT, PEG TUBE PRESENT GBS, NO REBOUND OR GUARDING EXT/SKIN: NO SIGNIFICANT EDEMA OR RASH NEURO: CN 2-12 GROSSLY INTACT, NO NEW FOCAL DEFICITS, with left-sided hemiparesis and aphasia PSY: CALM - Constitutional Vitals: Temp Pulse Resp BP Pulse Ox 98.7 F 105 H 20 150/79 98 10/25/16 08:00 10/25/16 08:00 10/25/16 08:00 10/25/16 08:00 10/25/16 08:00 Plan Activity: advance as tolerated, fall precautions Diet: diabetic, per dietitian instruction (in addition- 250cc free water flushes every 4 hours) Special Instructions: record daily BP diary, record blood sugar diary Additional Instructions: Repeat sodium level in 2-3 days with pcp Follow up with: JANAE ACOSTA MD [Primary Care Provider] - 3-5 Days MARLENE JORDAN MD [Staff Physician] - 7 Days Prescriptions: Insulin Detemir [Levemir] 35 units SUB-Q QHS 30 Days Insulin Aspart [NovoLOG Flexpen] 5 units SQ AC 30 Days
== END 2016-10-25 13:46 | DRG 637 ==
LOC: ED 14:11 → 3A 16:54
PROVIDERS: ADMIT Hospitalist; ATTEND Internal Medicine
DX: E11.65 Type 2 diabetes mellitus with hyperglycemia (principal); G93.41 Metabolic encephalopathy; E87.0 Hyperosmolality and hypernatremia; N17.9 Acute kidney failure, unspecified; I69.954 Hemiplegia and hemiparesis following unspecified cerebrovascular disease affecting left non-dominant side; E87.5 Hyperkalemia; I10 Essential (primary) hypertension; E87.8 Other disorders of electrolyte and fluid balance, not elsewhere classified; E86.0 Dehydration; D75.1 Secondary polycythemia; E87.6 Hypokalemia; I69.920 Aphasia following unspecified cerebrovascular disease; Z93.1 Gastrostomy status; Z87.891 Personal history of nicotine dependence
CPT/HCPCS: 36415; 49465; 71010; 80048; 82010; 82570; 82805; 82962; 83036; 83930; 84300; 85025; 85027; 93005; 93010; 96361; 96374; J1650; J1815; J1818; J2405; J3480; J7030; J7070; Q9963

== ENCOUNTER 2017-02-25 23:42 | Inpatient (IN) | payer MEDICARE ==
[2017-02-25] MEDS ORDERED: NACL 0.9% 500 ML 500 ML IV ONE (23:55)
[2017-02-25] MEDS ORDERED: NACL 0.9% 1000 ML 2,000 ML IV ONE (23:55)
[2017-02-26] MEDS ORDERED: NACL 0.9% 1000 ML 2,000 ML ONE
[2017-02-26 00:42] LABS: Hemoglobin 13.3 gm/dl (11.8-15.2); Mean Corpuscular HGB Conc 32 % (32-34); Mean Corpuscular Volume 82 fl (84-94); Platelet Count 121 K/mm3 (140-440); Red Blood Count 5.15 M/mm3 (3.65-5.03); Red Cell Distribution Width 15.9 % (13.2-15.2); White Blood Count 13.7 K/mm3 (4.5-11.0)
[2017-02-26 00:43] LABS: Mean Corpuscular Hemoglobin 26 pg (28-32)
[2017-02-26 00:51] LABS: INR 1.49 (0.87-1.13)
[2017-02-26 01:24] LABS: Basophils % (Manual) 0 % (0.0-1.8); Blastocytes % (Manual) 0 %; Eosinophils % (Manual) 0 % (0.0-4.3); Hypochromasia 1+
[2017-02-26 01:25] LABS: Anisocytosis 1+; Diff Status Complete; Platelet Estimate Consistent w Auto
[2017-02-26 01:28] LABS: Bacteria,Urine 1+ /HPF (Negative); Bilirubin,Urine NEG (Negative); Blood,Urine LG (Negative); Ketones,Urine NEG (Negative); Leukocyte Esterase,Urine LG (Negative); Mucus,Urine 2+ /HPF; Nitrite,Urine NEG (Negative); Sperm,Urine 1+ /HPF (NP); Urobilinogen,Urine < 2.0 mg/dL (<2.0)
[2017-02-26 01:30] LABS: WBC,Urine > 182.0 /HPF (0.0-6.0)
[2017-02-26] MEDS ORDERED: NACL 0.9% 1000 ML 1,000 ML IV ONE ×3 (01:37→07:22)
[2017-02-26] MEDS ORDERED: LEVAQUIN 750MG/150ML 750 MG/150 ML BAG IV ONE (01:37)
--- NOTE | 2017-02-26 01:45 | Emergency Department Report ---
ED Fever HPI - General Chief Complaint: Fever Stated Complaint: POSSIBLE SEPTIC Time Seen by Provider: 02/26/17 00:10 Source: EMS, [place] [facility] records Exam Limitations: clinical condition - History of Present Illness Initial Comments: 61-year-old male presents to the emergency department via EMS from local [place] [facility] for evaluation of fever. EMS states that on their arrival, the patient was noted to be hypoxic on room air. Patient was suctioned and placed on oxygen and the resultant oxygen saturation was 98%. Further history is unable to be obtained from patient due to his clinical condition. 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 Left side hemiplegia. Has Peg tube for feeding. Aphasic after stroke. - Surgical History Past Surgical History?: Yes Hx Pacemaker: No Hx Internal Defibrillator: No Additional Surgical History: PEG tube placement - Family History Family history: no significant - Social History Smoking Status: Unknown if ever smoked Substance Use Type: None - Medications Home Medications: Home Medications Medication Instructions Recorded Confirmed Last Taken Type Effexor 37.5 mg FEEDTUBE BID 10/21/16 10/21/16 Unknown History Ferrous Sulfate 300 mg FEEDTUBE DAILY 10/21/16 10/21/16 Unknown History Lipitor 20 mg PO HS 10/21/16 10/21/16 Unknown History Plavix 75 mg FEEDTUBE DAILY 10/21/16 10/21/16 Unknown History RisperDAL 1 mg FEEDTUBE HS 10/21/16 10/21/16 Unknown History Valproic Acid 250 mg FEEDTUBE HS 10/21/16 10/21/16 Unknown History Insulin Aspart [NovoLOG Flexpen] 5 units SQ AC 30 Days 10/25/16 Unknown Rx Insulin Detemir [Levemir] 35 units SUB-Q QHS 30 Days 10/25/16 Unknown Rx ED Physical Exam - General Limitations: Physical Limitation General appearance: in no apparent distress, lethargic - Head Head exam: Present: atraumatic, normocephalic - Eye Eye exam: Present: normal appearance, PERRL, EOMI - ENT ENT exam: Present: normal exam, normal orophraynx, mucous membranes moist - Neck Neck exam: Present: normal inspection, full ROM. Absent: tenderness - Respiratory Respiratory exam: Present: normal lung sounds bilaterally, respiratory distress (tachypnea noted) - Cardiovascular Cardiovascular Exam: Present: normal rhythm, tachycardia, normal heart sounds - GI/Abdominal GI/Abdominal exam: Present: soft, normal bowel sounds. Absent: distended, tenderness - Extremities Exam Extremities exam: Present: normal inspection, full ROM. Absent: tenderness - Back Exam Back exam: Present: normal inspection, full ROM. Absent: tenderness - Neurological Exam Neurological exam: Present: altered. Absent: motor sensory deficit - Skin Skin exam: Present: warm, dry, intact ED Course Vital Signs 02/26/17 02/26/17 00:03 01:16 Temperature 101.7 F H Pulse Rate 133 H Respiratory 52 H Rate Blood Pressure 75/46 100/50 [Right] O2 Sat by Pulse 100 Oximetry ED Medical Decision Making - Lab Data Result diagrams: 02/26/17 00:11 - Radiology Data Radiology results: image reviewed interpreted by me: Chest x-ray shows no acute cardiopulmonary abnormality. - Medical Decision Making Lab and imaging results reviewed. After 2 L of fluid, the patient's blood pressure has greatly improved. Patient is being given IV Levaquin for urinary tract infection. Additional IV fluids are also being given for elevated lactic acid. Patient is to be admitted by the hospitalist. - Differential Diagnosis sepsis, pneumonia, UTI Critical care attestation.: If time is entered above; I have spent that time in minutes in the direct care of this critically ill patient, excluding procedure time. ED Disposition Clinical Impression: Sepsis Qualifiers: Sepsis type: sepsis due to unspecified organism Qualified Code(s): A41.9 - Sepsis, unspecified organism Urinary tract infection Qualifiers: Urinary tract infection type: acute cystitis Hematuria presence: without hematuria Qualified Code(s): N30.00 - Acute cystitis without hematuria Disposition: OP ADMITTED IP TO THIS HOSP Is pt being admited?: Yes Condition: Stable Referrals: JANAE ACOSTA MD [Primary Care Provider] - 3-5 Days Time of Disposition: 01:59
[2017-02-26 01:48] LABS: Albumin 3.1 g/dL (3.9-5); Albumin/Globulin Ratio 0.9 %; BUN/Creatinine Ratio 11.72; Bilirubin,Total 0.2 mg/dL (0.1-1.2); Calcium 9.6 mg/dL (8.4-10.2); Chloride 102.6 mmol/L (98-107); Potassium 4.1 mmol/L (3.6-5.0); Total Protein 6.6 g/dL (6.3-8.2)
--- NOTE | 2017-02-26 03:27 | History and Physical Report ---
History of Present Illness Date of examination: 02/26/17 History of present illness: 61-year-old man with a history of CVA, status post aphasia, left hemiplegia, hypertension, diabetes was brought to the emergency room for fever, his blood pressure was found to be low, systolic in the 70s.A review of system is unobtainable PAST SURGICAL HISTORY: PEG tube, trach SOCIAL HISTORY: Unknown FAMILY HISTORY: Unknown Medications and Allergies Allergies Allergy/AdvReac Type Severity Reaction Status Date / Time No Known Allergies Allergy Unverified 10/21/16 15:02 Home Medications Medication Instructions Recorded Confirmed Last Taken Type Acetaminophen [Acetaminophen ORAL 160 mg PO PRN 02/26/17 02/26/17 Unknown History LIQ] Aspirin [Adult Low Dose Aspirin EC] 81 mg PO DAILY 02/26/17 02/26/17 Unknown History Famotidine [Pepcid] 20 mg PO BID 02/26/17 02/26/17 Unknown History Insulin Glargine [Lantus] 20 unit SUB-Q QHS 02/26/17 02/26/17 Unknown History Insulin Lispro [Humalog] 100 unit SQ DAILY 02/26/17 02/26/17 Unknown History Ipratropium [Atrovent] 0.5 mg IH Q6HRT 02/26/17 02/26/17 Unknown History LORazepam [Ativan] 1 mg PO TID PRN 02/26/17 02/26/17 Unknown History Lipase/Protease/Amylase [Creon Dr 1 each PO PRN 02/26/17 02/26/17 Unknown History 6,000 Units Capsule] Quetiapine Fumarate [SEROquel] 75 mg PO QDAY 02/26/17 02/26/17 Unknown History Simvastatin [Zocor TAB] 10 mg PO QHS 02/26/17 02/26/17 Unknown History Active Meds: Active Medications Sodium Chloride (Nacl 0.9% 1000 Ml) 1,000 mls @ 125 mls/hr IV ONCE ONE Stop: 02/26/17 09:36 Last Admin: 02/26/17 02:17 Dose: 125 mls/hr Exam - Physical Exam Narrative exam: Gen. appearance: Patient lying in bed, no apparent distress, trach collar HEENT: Normocephalic, atraumatic, pupils equally round and reactive to light, unable to do extraocular movement intact, and no sclericterus,. No JVD or thyromegaly or nodule,neck supple, no carotid bruit ,mucous membranes moist, no exudate or erythema Heart: S1, S2, regular rate and rhythm Lungs: Rhonchi bilaterally, breathing comfortable Abdomen: Positive bowel sounds, peg,soft, nondistended, no organomegaly Extremity: No edema, cyanosis, clubbing Skin: No rash, nodules, warm, dry Neuro: difficult to assess - Constitutional Vitals: Temp Pulse Resp BP Pulse Ox 101.7 F H 158 H 23 86/50 100 02/26/17 01:16 02/26/17 02:10 02/26/17 02:10 02/26/17 02:10 02/26/17 02:10 Results - Labs CBC & Chem 7: 02/26/17 00:11 02/26/17 00:11 Labs: Abnormal lab results 02/26/17 02/26/17 02/26/17 Range/Units 00:11 00:11 00:11 WBC 13.7 H (4.5-11.0) K/mm3 RBC 5.15 H (3.65-5.03) M/mm3 MCV 82 L (84-94) fl MCH 26 L (28-32) pg RDW 15.9 H (13.2-15.2) % Plt Count 121 L (140-440) K/mm3 Seg Neuts % (Manual) 91.0 H (40.0-70.0) % Lymphocytes % (Manual) 5.0 L (13.4-35.0) % Seg Neutrophils # Man 12.5 H (1.8-7.7) K/mm3 Lymphocytes # (Manual) 0.7 L (1.2-5.4) K/mm3 PT 18.0 H (12.2-14.9) Sec. INR 1.49 H (0.87-1.13) VBG pH (7.320-7.420) Carbon Dioxide 17 L (22-30) mmol/L BUN 34 H (9-20) mg/dL Creatinine 2.9 H (0.8-1.5) mg/dL Glucose 166 H (75-100) mg/dL Lactic Acid (0.7-2.0) mmol/L Albumin 3.1 L (3.9-5) g/dL Urine WBC (Auto) (0.0-6.0) /HPF 02/26/17 02/26/17 02/26/17 Range/Units 00:11 00:11 01:16 WBC (4.5-11.0) K/mm3 RBC (3.65-5.03) M/mm3 MCV (84-94) fl MCH (28-32) pg RDW (13.2-15.2) % Plt Count (140-440) K/mm3 Seg Neuts % (Manual) (40.0-70.0) % Lymphocytes % (Manual) (13.4-35.0) % Seg Neutrophils # Man (1.8-7.7) K/mm3 Lymphocytes # (Manual) (1.2-5.4) K/mm3 PT (12.2-14.9) Sec. INR (0.87-1.13) VBG pH 7.276 L (7.320-7.420) Carbon Dioxide (22-30) mmol/L BUN (9-20) mg/dL Creatinine (0.8-1.5) mg/dL Glucose (75-100) mg/dL Lactic Acid 8.00 H* (0.7-2.0) mmol/L Albumin (3.9-5) g/dL Urine WBC (Auto) > 182.0 H (0.0-6.0) /HPF Assessment and Plan Septic shock UTI Acute renal failure Diabetes type 2 Thrombocytopenia Admits medicine Start Rocephin, follow blood , urine cultures Give IV fluid bolus, then maintenance fluid, start levophed drip consult critical care Obtain ultrasound of the kidneys, check fingersticks Check fingersticks and insulin sliding scale
[2017-02-26] MEDS ORDERED: TYLENOL PO PRN (03:28)
[2017-02-26] MEDS ORDERED: ZOFRAN IV PRN (03:28)
--- NOTE | 2017-02-26 03:53 | Admit Criteria Form ---
Admission Criteria Documentation: SEPSIS and OTHER FEBRILE ILLNESS, W/O FOCAL INFECTION Clinical Indications for Admission to Inpatient Care ( Place 'X' for any and all applicable criteria): Admission is indicated for ANY ONE of the following (1)(2)(3)(4): [ ] I. Bacteremia [ ]II. Suspected or identified specific infection requiring hospitalization (eg, meningitis, endocarditis) [X ]III. Hemodynamic instability [ ]IV. Altered mental status [ ]V. Failure or unavailability of outpatient antimicrobial treatment [ ]. Hypoxemia [ ]VII. Seizures [ ]VIII. High-risk febrile neutropenia [ ]IX. Need for parenteral antibiotic in patient who is likely to abuse vascular access device (eg, injection drug user) [A](7) [ ]X. Temperature greater than 104.9 degrees F (40.5 degrees C) (oral) [ ]XI. Inpatient admission required rather than observation care because of ANY ONE of the following: [ ]1) Specific infection identified that is too severe for outpatient treatment or observation care trial [ ]2) Metabolic disorder (eg, hypoglycemia, hyperglycemia, metabolic acidosis) that is severe or persistent [ ]3) Temperature greater than 103.1 degrees F (39.5 degrees C) ( oral) that is not responsive to observation care treatment [ ]4) IV fluid to replace significant ongoing (eg, for over 24 hours) losses (> 3 L/m2 per day) [ ]5) Supplemental oxygen or respiratory treatments for over 24 hours that is performable only in acute inpatient setting [ ]6) Parenteral nutrition regimen need that must be implemented on inpatient basis [ ]7) Strict or protective (eg, laminar flow) isolation [ ]8) Other condition, treatment or monitoring requiring inpatient admission Extended stay beyond goal length of stay may be needed for(1)(3) [ ]a) Sepsis or septic shock(22) [ ]b) Positive blood cultures [ ]c) Insufficient oral intake [ ]d) High-risk febrile neutropenia(29)(30) [ ]e) Continued fever and clinical instability [ ]f) Clinically active comorbid illness (e.g,heart failure, renal failure , diabetes) The original [facility] [employer] content created by Kashif Carrillo has been revised. The portions of the content which have been revised are identified through the use of italic text or in bold, and Kashif Carrillo has neither reviewed nor approved the modified material. All other unmodified content is copyright [facility]. Please see references footnoted in the original [facility] edition 2016 Admission Criteria Met: Yes
[2017-02-26] MEDS ORDERED: ATIVAN IV ONE (03:54)
[2017-02-26] MEDS ORDERED: TYLENOL ONE (03:57)
[2017-02-26] MEDS ORDERED: ATIVAN ONE (03:59)
[2017-02-26] MEDS ORDERED: ROCEPHIN/NS 1 GM/50 ML 1 GM/50 ML BAG IV SCH (04:00)
[2017-02-26] MEDS ORDERED: NACL 0.9% 1000 ML 1,000 ML IV SCH ×2 (04:00→05:00)
[2017-02-26] MEDS ORDERED: ROCEPHIN/NS 1 GM/50 ML 1 GM/50 ML BAG IV ONE (04:47)
[2017-02-26] MEDS ORDERED: ATIVAN PO PRN (04:51)
[2017-02-26] MEDS ORDERED: LEVOPHED DRIP 4 MG/NS 250 ML 4 MG/250 ML BAG IV SCH (05:00)
[2017-02-26] MEDS ORDERED: CREON DR 6,000 UNITS PO PRN (05:00)
[2017-02-26] MEDS ORDERED: LEVOPHED DRIP 4 MG/NS 250 ML 4 MG/250 ML BAG IV ONE (05:24)
[2017-02-26] MEDS ORDERED: NACL 0.9% 1000 ML 1,000 ML ONE ×2 (05:30→07:14)
[2017-02-26] MEDS ORDERED: TYLENOL PR ONE ×2 (07:30→07:43)
[2017-02-26] MEDS ORDERED: ATROVENT IH SCH (08:00)
[2017-02-26] MEDS ORDERED: ATROVENT IH ONE (08:00)
--- NOTE | 2017-02-26 08:41 | XRay Report ---
AP CHEST: HISTORY: Sepsis Compared to 11/16/16. The tracheostomy remains in adequate position. A left arm PICC has been removed. Heart size and pulmonary vascularity are within normal limits. There are mild chronic interstitial changes in both lungs but no evidence for infiltrate, pleural effusion or pneumothorax. The thoracic cage is grossly intact. IMPRESSION: No acute cardiopulmonary process identified.
[2017-02-26] MEDS ORDERED: D50W (25GM) IV ONE ×2 (09:33→19:33)
--- NOTE | 2017-02-26 09:52 | XRay Report ---
G-TUBE STUDY History: Confirm G-tube placement. 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 Right femoral catheter is also noted. A second image was obtained after injection of oral contrast through the PEG tube which outlines the cardia of the stomach. No extravasation. Impression: The PEG tube terminates in the stomach.
[2017-02-26] MEDS ORDERED: QUETIAPINE FUMARATE 75 MG PO SCH (10:00)
[2017-02-26] MEDS ORDERED: LOVENOX SUB-Q SCH (10:00)
[2017-02-26] MEDS ORDERED: HALFPRIN EC PO SCH (10:00)
[2017-02-26] MEDS ORDERED: PEPCID PO SCH ×2 (10:00)
[2017-02-26 10:35] VITALS: BP 91/12
--- NOTE | 2017-02-26 10:49 | Event Note ---
Was called to the floor as the patient was pulseless and had no spontaneous breathing. Performed full ACLS protocol, there was no return of circulation. Therefore patient was pronounced . His sister who is his next of kin was informed.
--- NOTE | 2017-02-26 10:49 | Death Summary ---
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 He was found to be septic and placed on broad spectrum abx, IVF, IV pressors and admitted to Critical Care unit, He was later found to be pulseless, code blue was called and full ACLS protocol- CPR was performed, however patient did not recover, he was pronounced and family was made aware of his demise Diagnosis Cardiac Arrest Severe sepsis with Septic Shock DM type 2 hx of CVA UMANG - Final diagnosis (1) Septic shock Note: Final diagnosis:
[2017-02-26] MEDS ORDERED: ADRENALIN ONE (19:33)
[2017-02-26] MEDS ORDERED: SODIUM BICARBONATE IV ONE (19:33)
[2017-02-26] MEDS ORDERED: ZOCOR PO SCH (22:00)
--- NOTE | 2017-02-27 08:49 | Ultrasound Report ---
ULTRASOUND RENAL RIGHT HISTORY: Acute renal failure. TECHNIQUE: Transabdominal ultrasound imaging. COMMENT: Please note that this examination is just presented to me for interpretation. This examination was started on 02/26/17 at 0530 hours but only the right kidney could be imaged. The patient became unstable during the examination and a decision was made to image the left kidney later. Unfortunately the patient later . FINDINGS: The right kidney measures 8.9 cm in length with cortical thickness measuring 1.2 cm. The right kidney parenchyma is slightly echogenic but no focal renal lesion, nephrolithiasis, hydronephrosis or perinephric fluid was demonstrated. The left kidney and bladder were not imaged. Please see above. IMPRESSION: Incomplete exam as described above. The right kidney is borderline atrophic with increased cortical echotexture. This probably represents mild chronic renal parenchymal disease. No focal renal lesion or right hydronephrosis.
== END 2017-02-26 12:30 | DRG 871 ==
LOC: ED 23:42 → 3A 02-26 03:28 → CC1 02-26 05:37
PROVIDERS: ADMIT Internal Medicine; ATTEND Internal Medicine
PROC: 06HM33Z Insertion of Infusion Device into Right Femoral Vein, Percutaneous Approach (ICD-10-PCS; principal; 2017-02-26)
PROC: 5A12012 Performance of Cardiac Output, Single, Manual (ICD-10-PCS; principal; 2017-02-26)
DX: A41.9 Sepsis, unspecified organism (principal); R65.21 Severe sepsis with septic shock; N39.0 Urinary tract infection, site not specified; N17.9 Acute kidney failure, unspecified; I46.9 Cardiac arrest, cause unspecified; D69.6 Thrombocytopenia, unspecified; E11.9 Type 2 diabetes mellitus without complications; I10 Essential (primary) hypertension; Z86.73 Personal history of transient ischemic attack (TIA), and cerebral infarction without residual deficits; Z74.01 Bed confinement status; Z93.1 Gastrostomy status; Z93.0 Tracheostomy status
CPT/HCPCS: 36415; 71010; 74000; 76775; 80053; 81001; 82140; 82805; 82962; 85007; 85025; 85610; 87040; 92950; 93005; 93010; 94640; 96374; 96375; J0171; J0696; J1956; J2060; J7030; Q9963